=== PATIENT | female | born 1960 | race Caucasian/White ===

== ENCOUNTER 2020-10-26 07:04 | Day surgery (SDC) | payer MEDICARE, MEDICAID ==
[2020-10-19 15:19] LABS: CLARITY,URINE CLEAR (Clear); COLOR,URINE STRAW (Yellow); GLUCOSE, URINE NEGATIVE (Neg); KETONES,URINE NEGATIVE (Neg); LEUKOCYTE ESTERASE ,URINE NEGATIVE (Neg); NITRITES, URINE NEGATIVE (Neg); OCCULT BLOOD,URINE NEGATIVE (Neg); PROTEIN,URINE NEGATIVE (Neg); UROBILINOGEN,URINE 0.2 E.U/dL (0.2-1.0)
[2020-10-19 15:22] LABS: BASOPHILS # (AUTO) 0.1 X10'3 (0-0.2); BASOPHILS % (AUTO) 0.8 % (0-1); EOSINOPHILS # (AUTO) 0.2 X10'3 (0-0.9); EOSINOPHILS % (AUTO) 1.4 % (0-6); LYMPHOCYTES # (AUTO) 2.9 X10'3 (1.1-4.8); LYMPHOCYTES % (AUTO) 23.2 % (21-51); MEAN CORPUSCULAR HEMOGLOBIN 31.8 PG (27.0-31.0); MEAN CORPUSCULAR HGB CONC 33.8 g/dL (33.0-36.5); MEAN CORPUSCULAR VOLUME 94.1 FL (78-98); MONOCYTES # (AUTO) 0.7 X10'3 (0-0.9); MONOCYTES % (AUTO) 5.9 % (2-12); NEUTROPHILS # (AUTO) 8.6 X10'3 (1.8-7.7); NEUTROPHILS % (AUTO) 68.7 % (42-75); PRE OP HEMATOCRIT 49.8 % (35.0-45.0); PRE OP HEMOGLOBIN 16.9 g/dL (12.0-16.0); PRE OP PLATELET COUNT 221 X10'3 (140-440); RED CELL DISTRIBUTION WIDTH 12.7 % (11.5-14.5)
[2020-10-19 15:38] LABS: ALANINE AMINOTRANSFERASE 19 U/L (12-78); ALBUMIN 3.5 G/DL (3.4-5.0); ALKALINE PHOSPHATASE 70 IU/L (46-116); ANION GAP 5 (8-16); ASPARTATE AMINO TRANSFERASE 17 U/L (10-37); BILIRUBIN,TOTAL 0.3 MG/DL (0.1-1.0); BLOOD UREA NITROGEN 15 MG/DL (7-18); BUN/CREATININE RATIO 33.3 (6.6-38.0); CALCIUM 9.1 MG/DL (8.5-10.1); CHLORIDE 105 MMOL/L (99-107); CREATININE 0.45 MG/DL (0.40-0.90); GLUCOSE 67 MG/DL (70-104); POTASSIUM 4.1 MMOL/L (3.5-5.1); SODIUM 139 MMOL/L (135-145); TOTAL CARBON DIOXIDE 28.8 MMOL/L (24-32); eGFR > 90 ML/MIN
[2020-10-19 15:42] LABS: UA COLLECTION TYPE NON-SPECIFIED
[2020-10-26] VITALS (8 sets, daily range): BP systolic 117–177; BP diastolic 45–90
[~2020-10-26] VITALS: Ht 175.3 cm; Wt 77.1 kg
[~2020-10-26 07:04] MED LIST: AMA1T PO; CHOL400T57 PO; DULO-31 PO; ESTR0.25 TOP; IBUP-1984 PO; LYR75C PO; METH-603 PO; PROG200C11 PO; SITA1TBM4 PO; THY60T PO; TRAZ150T78 PO; [UNRECOGNIZED DRUG - CODE] PO; albuterol 2.5 MG/3 ML nebule NEB ONE; cefazolin/dext.iso 2gm/100ml IV ONE; famotidine 20mg tablet PO ONE; ringers solution, lacted 1,000 ML IV SCH
--- NOTE | 2020-10-26 10:03 | NUR ---
Received from OR via gasper, accompanied by Anesthesiologist Bev and report given by Anesthesiolgist. VS WNL, mask to 10L sats 96%. 20G left hand IVF LR 100cc/hr. Left foot dressed and wrapped with gauze, elevated and ice bag applied. Addendum: 10/26/20 at 1436 by Idalmis Guzman RN INCORRECT TIME DISREGARD
[2020-10-26] MEDS ORDERED: BUPIVAcaine/PF 2.5 mg/ml (0.25%) 30ml vial ONE (10:59)
[2020-10-26] MEDS ORDERED: bacitracin 15gm ointment TP ONE (10:59)
[2020-10-26] MEDS ORDERED: fentaNYL /PF 50mcg/ml 5ml ampule ONE (11:00)
[2020-10-26] MEDS ORDERED: MIDAZolam 1mg/ml 10ml vial ONE (11:00)
[2020-10-26] MEDS ORDERED: rocuronium 10mg/ml inj IV ONE ×2 (11:11→12:12)
[2020-10-26] MEDS ORDERED: LIDOcaine 2% (20mg/ml) 5ml vial ONE (11:11)
[2020-10-26] MEDS ORDERED: propofol inj 20 ML IV ONE (11:11)
[2020-10-26] MEDS ORDERED: morphine 2 MG/ML inj. syringe IV PRN (11:15)
[2020-10-26] MEDS ORDERED: ringers solution, lacted 1,000 ML IV SCH (11:15)
[2020-10-26] MEDS ORDERED: morphine 4 MG/ML inj SYRINge IV PRN (11:15)
[2020-10-26] MEDS ORDERED: ondansetron/PF 4mg/2ml inj IV PRN (11:15)
[2020-10-26] MEDS ORDERED: labetalol 20mg/4ml (5mg/ml) syringe IV PRN (11:15)
[2020-10-26] MEDS ORDERED: hydrALAZINE 20mg/ml inj. IV PRN (11:15)
[2020-10-26] MEDS ORDERED: fentaNYL/PF 50MCG/1 ML 2ML syringe IV PRN ×2 (11:15)
[2020-10-26] MEDS ORDERED: sevoflurane 250ml liquid IH ONE (11:18)
[2020-10-26] MEDS ORDERED: metoclopramide 5 mg/ml inj ONE ×2 (11:18→11:49)
[2020-10-26] MEDS ORDERED: ondansetron/PF 4mg/2ml inj ONE (11:49)
--- NOTE | 2020-10-26 13:03 | NUR ---
Received from OR via melissa, accompanied by Anesthesiologist Bev and report given by Anesthesiolgist. VS WNL, mask to 10L sats 96%. 20G left hand IVF LR 100cc/hr. Left foot dressed and wrapped with gauze, elevated and ice bag applied.
--- NOTE | 2020-10-26 14:33 | NUR ---
Pt discharged to vehicle by wheelchair without incident to sister waiting. Discharged instructions discussed with patient and again at vehicle with family member, both verbalized understanding of all instructions. all belongings returned to patient, IV DC'd. Dressing reinforced with gauze and joshua wrap prior to leaving due to small dime size amount of drainage. Boot on and patient understands boot management and partial weight bearing instructions. Pt states she has been requesting for the surgeon to verify he's okay with her taking pain medication with the pharmacy who needs permission to fill script due to her being on other pain pills. She knows to follow up with the office and I will also speak with MD after next surgery to remind him for verification. Otherwise patient is stable for discharge, comfortable and dressing remains CDI.
== END 2020-10-26 14:33 | disposition home or self-care (01) ==
LOC: PAS 07:04
PROVIDERS: ATTEND Podiatrist Foot & Ankle Surgery
DX: M67.472 Ganglion, left ankle and foot (principal); M79.672 Pain in left foot; M79.89 Other specified soft tissue disorders; Z20.822 Contact with and (suspected) exposure to COVID-19; Z72.0 Tobacco use
CPT/HCPCS: 27634; 36415; 71046; 80053; 81003; 82948; 85025; 93005; A6222; J2001; J2250; J2405; J2704; J2765; J3010; J3490; U0003; A4215; A4618; A6449; A7000; J7120